=== PATIENT | female | born 1975 | race Caucasian/White ===

== ENCOUNTER 2025-03-22 07:53 | Outpatient (REF) | payer BC, SELFPAY | END 2025-03-22 07:54 | disposition home or self-care (01) | LOC: HO.LNP 07:53 | PROVIDERS: Visit Provider Internal Medicine | DX: Z00.00 Encounter for general adult medical examination without abnormal findings (principal); N92.0 Excessive and frequent menstruation with regular cycle; E04.9 Nontoxic goiter, unspecified; Z80.0 Family history of malignant neoplasm of digestive organs | CPT/HCPCS: 87626; 88175; 96127 ==

== ENCOUNTER 2025-03-22 07:53 | Outpatient (AMB) | payer BC, SELFPAY ==
--- NOTE | 2025-03-22 08:00 | A.OFFPC_ITS ---
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 Patient complains of hot flashes and irregular heavy menstrual bleeding for the last few months. She did not have insurance for 3 years and has not had regular medical care. 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 1. Little interest or pleasure in doing things: not at all 2. Feeling down, depressed, or hopeless: not at all 3. Trouble falling or staying asleep, or sleeping too much: not at all 4. Feeling tired or having little energy: nearly every day 5. Poor appetite or overeating: not at all 6. Feeling bad about yourself - or that you are a failure or have let yourself or your family down: not at all 7. Trouble concentrating on things, such as reading the newspaper or watching television: not at all 8. Moving or speaking so slowly that other people could have noticed. Or the opposite - being so fidgety or restless that you have been moving around a lot more than usual: not at all 9. Thoughts that you would be better off or of hurting yourself in some way: not at all Total score: 3 Depression Screening Interpretation: Negative Depression Screening Done: Yes 79876 - PHQ-9 Billing: Yes Source: Developed by Drs. Javier Castrejon, Paula Sullivan, Milton Cochran and colleagues, with an educational gerardo from [employer]. Thrive Questionnaire Date Thrive assessed: 03/22/25 I am a: Patient What is your living situation today?: I have a steady place to live Within the past 12 months, did the food you bought not last and you didn't have the money to get more?: Never true Within the past 12 months, did you worry whether your food would run out before you got money to buy more?: Never true Do you have trouble paying for medicines?: No Do you have trouble getting transportation to medical appointments?: No Do you have trouble paying your heating and electricity bill?: No Do you have trouble taking care of your child, family member or friend?: No Do you have trouble with day-to-day activities such as bathing, preparing meals, shopping, managing finances, etc.?: No Are you currently unemployed and looking for a job?: No Are you interested in more education?: No Please select the resources that you would like help with: None Currently or been in a relationship where the following occur: No concerns reported THRIVE Score: 0 AUDIT C Alcohol Use Questionnaire (AUDIT-C) 1. How often do you have a drink containing alcohol?: Monthly or less 2. How many drinks containing alcohol do you have on a typical day when you are drinking?: 1 or 2 3. How often do you have six or more drinks on one occasion?: Never Total Score: 1 ZAK-7 AMB Questionnaire ZAK-7 Date ZAK - 7 assessed: 03/22/25 Feeling nervous, anxious, or on edge: 0 = Not at all Not being able to stop or control worryin = Not at all Worrying too much about different things: 0 = Not at all Trouble relaxin = Not at all Being so restless that it is hard to sit still: 0 = Not at all Becoming easily annoyed or irritable: 0 = Not at all Feeling afraid as if something awful might happen: 0 = Not at all Total ZAK-7 score (0-4 normal; 5-9 mild; 10-14 moderate; 15-21 severe): 0 Source: Developed by Drs. Javier Castrejon, Paula Sullivan, Milton Cochran and colleagues, with an educational gerardo from [employer]. ZAK-7 Assessment Billing ZAK-7 Assessment Tool: ZAK-7 Assessment 95067 Review of Systems Const All systems reviewed & are unremarkable except as noted in HPI and below Eyes Reports no additional complaints ENT Reports no additional complaints Card Reports no additional complaints Resp Reports no additional complaints GI Reports no additional complaints Reports no additional complaints Physical exam (Primary Care) Vital Signs: Last Vital Signs Temp 98.4 F 03/22/25 08:03 Pulse 85 03/22/25 08:03 Resp 18 03/22/25 08:03 BP 110/78 03/22/25 08:03 Pulse Ox 100 03/22/25 08:03 Oxygen Delivery Method Room Air 03/22/25 08:03 BMI result Body Mass Index 22.7 Tobacco/Smoking Status: Tobacco use Status Tobacco use date assessed 03/22/25 03/22/25 08:11 Patient Tobacco Use Status Never used Tobacco 03/22/25 08:30 e-Cigarette/Vaping Use Never Used 03/22/25 08:30 PHQ-9: PHQ-9 Score PHQ-9: Total score 3 03/22/25 08:28 Depression Screening Interpretation: Negative Thrive Assessment: Date of Thrive Assessment Date Thrive assessed 03/22/25 03/22/25 08:13 Currently or been in a relationship where the following occur: No concerns reported Const General: no acute distress HENMT Head: Yes normal to inspection Face and sinus: Yes normal facial exam Mouth: Normal oral and palatal mucosa present Throat: Yes posterior oropharynx normal Eyes General: appearance normal, both eyes and all related structures Neck Neck: Yes no lymphadenopathy and Yes supple Thyroid: diffusely enlarged Resp Effort & Inspection: normal respiratory effort Auscultation: clear to auscultation bilaterally Cardio Rhythm: regular rhythm Heart sounds: S1 normal heart sound present and S2 normal heart sound present GI Inspection: Yes normal to inspection Palpation (GI): Soft to palpation Percussion: Yes normal to percussion Auscultation: normal bowel sounds External Female Exam: normal external appearance Speculum Exam - Vagina: normal appearance of the vagina Speculum Exam - Cervix: normal appearance of the cervix Bimanual exam- vagina & uterus: normal bimanual exam Coding Level of Care Code New Pt Prev Care 40-64y(64835) Diagnoses Annual physical exam Z00.00 FHx: colon cancer Z80.0 Menorrhagia N92.0 Enlarged thyroid E04.9 Additional Codes ZAK-7 Assessment Billing - ZAK-7 Assessment Tool: ZAK-7 Assessment 41000 ([id number]) PHQ-9 - 79100 - PHQ-9 Billing: Yes ([id number]) Assessment & Plan Assessment & Plan (1) Annual physical exam: Code(s): Z00.00 - Encounter for general adult medical examination without abnormal findings Category: Medical Plan: Well-balanced diet regular physical activity discussed with the patient she will return for fasting blood work. Mammogram will be scheduled due to family history of colon cancer patient will be referred for colonoscopy (2) FHx: colon cancer: Comment: both parents Code(s): Z80.0 - Family history of malignant neoplasm of digestive organs Category: Medical Plan: Referred for colonoscopy (3) Menorrhagia: Code(s): N92.0 - Excessive and frequent menstruation with regular cycle Category: Medical Plan: Pap smear was done today. Pelvic ultrasound will be obtained (4) Enlarged thyroid: Code(s): E04.9 - Nontoxic goiter, unspecified Category: Medical Plan: Thyroid ultrasound will be checked Orders: Orders Comprehensive [place]. Panel Fast Today Z00.00 - Encounter for general adult medical examination without abnormal findings TSH reflex Free T4 Today Z00.00 - Encounter for general adult medical examination without abnormal findings Vitamin D 25-OH Total Today Z00.00 - Encounter for general adult medical examination without abnormal findings Pap Smear Today Z00.00 - Encounter for general adult medical examination without abnormal findings US pelvic and transvaginal Today N92.0 - Excessive and frequent menstruation with regular cycle Complete Blood Count Auto Diff Today Z00.00 - Encounter for general adult medical examination without abnormal findings Lipid Panel Today Z00.00 - [facility] findings UA w Microscopic Today Z00.00 - Encounter for general adult medical examination without abnormal findings MM tomosynthesis screening BI Today Z12.31 - Encounter for screening mammogram for malignant neoplasm of breast US thyroid Today E04.9 - Nontoxic goiter, unspecified IRON PROFILE Today Z00.00 - Encounter for general adult medical examination without abnormal findings Referrals Gastroenterology Referral Z80.0 - Family history of malignant neoplasm of digestive organs
[2025-03-22 08:03] VITALS: BP 110/78; PULSE 85; RESP 18; TEMP 36.9; O2SAT 100; BMI 22.7
== END 2025-03-22 13:17 | disposition home or self-care (01) ==
LOC: HO.HMCC 07:54
PROVIDERS: Visit Provider Internal Medicine
DX: Z00.00 Encounter for general adult medical examination without abnormal findings (principal); Z80.0 Family history of malignant neoplasm of digestive organs; N92.0 Excessive and frequent menstruation with regular cycle; E04.9 Nontoxic goiter, unspecified

== ENCOUNTER 2025-03-22 09:13 | Outpatient (REF) | payer BC, SELFPAY ==
[2025-03-22 10:09] LABS: MANUAL DIFF FLAG NO
[2025-03-22 10:20] LABS: Hematocrit 37.1 % (37.0-47.0); Hemoglobin 12.4 g/dl (12.0-16.0); Imm Gran Abs Auto 0.02 X10*3/uL (0.00-0.03); Imm Gran Pct Auto 0.4 % (0.0-0.4); Lymphocytes Absolute Auto 1.2 X10*3/uL (1.2-4.9); Mean Corpuscular HGB Conc 33.4 g/dl (31.0-35.0); Mean Corpuscular Hemoglobin 28.9 pg (27.0-33.0); Mean Corpuscular Volume 86.5 fL (80.0-98.0); NRBC Abs Auto 0.000 X10*3/uL (0.0-0.012); NRBC Pct Auto 0.0 /100WBC (0.0-0.2); Platelet Count 363 X10*3/uL (160-400); Red Blood Count 4.29 X10*6/uL (4.20-5.50); White Blood Count 5.5 X10*3/uL (4.8-10.8)
[2025-03-22 11:09] LABS: Alanine Aminotransferase 19 U/L (0-31); Albumin Level 4.5 g/dL (3.5-5.0); Alkaline Phosphatase 73 U/L (39-117); Anion Gap 11 (12-20); Aspartate Amino Transferase 23 U/L (5-31); Blood Urea Nitrogen 9 mg/dL (9-16); Calcium 9.0 mg/dL (8.4-10.2); Carbon Dioxide 27 mmol/L (22-29); Chloride 106 mmol/L (96-108); Cholesterol 202 mg/dL (<200); Estimated Glomerular Filt Rate > 60; HDL Cholesterol 62 mg/dL (>40); Iron 92 mcg/dL (30-160); Percent Iron Saturation 27 % (15-50); Potassium 3.6 mmol/L (3.3-5.1); Sodium 140 mmol/L (135-145); Total Iron Binding Capacity 337 mcg/dL (228-428); Total Protein 7.5 g/dL (6.5-8.0); Triglycerides 56 mg/dL (<150); Unsaturated Iron Binding 245 ug/dL
[2025-03-22 13:15] LABS: Appearance Urine Clear; Glucose Urine UA Negative (Negative); PH 8.5 (5.0-9.0); Specific Gravity - Urine 1.020 (1.005-1.025); UMIC TRIGGER UA YES
== END 2025-03-22 09:14 | disposition home or self-care (01) ==
LOC: HO.HMGCLDS 09:13
PROVIDERS: PCP Internal Medicine; Visit Provider Internal Medicine
DX: Z00.00 Encounter for general adult medical examination without abnormal findings (principal); Z13.6 Encounter for screening for cardiovascular disorders; Z13.0 Encounter for screening for diseases of the blood and blood-forming organs and certain disorders involving the immune mechanism
CPT/HCPCS: 36415; 80053; 80061; 81001; 82306; 83540; 84443; 85025

== ENCOUNTER 2025-05-24 13:00 | Outpatient (REF) | payer BC, SELFPAY ==
--- NOTE | ~2025-05-24 | US_ITS ---
EXAMINATION: US PELVIS CLINICAL INFORMATION: Menorrhagia COMPARISON: None available. TECHNIQUE: Ultrasound of the pelvis is performed using both transabdominal and transvaginal transducers along with Doppler. Transvaginal imaging is performed due to inadequate visualization transabdominally. FINDINGS: Uterus: The uterus is anteversion flexion and measures 8 x 4 x 6 cm. Volume: 103 cc. Cervix is closed with a small nabothian cysts. The double wall endometrial thickness is 5 mm. There is a 1.5 cm isoechoic lesion in the fundus of the uterus. There is a 1.1 cm hypoechoic soft tissue lesion in the left body of the myometrium. . Adnexa: The ovaries are identified with flow on color Doppler interrogation.. No gross solid or cystic lesion. No free fluid in the cul-de-sac. Right ovary measures 3 x 2 x 1 cm. Volume: 2 cc. 1 cm dominant follicle Left ovary measures . 2 x 1 x 2 cm. Volume: 2 cc. US/US pelvic and transvaginal IMPRESSION: Uterine fibroids. No ovarian torsion. Electronically signed by: Bartolo Steen MD 05/24/2025 01:46 PM EST
--- NOTE | ~2025-05-24 | US_ITS ---
EXAMINATION: US THYROID CLINICAL INFORMATION: Nontoxic goiter. Enlarged thyroid gland. 49-year-old female. COMPARISON: No priors. TECHNIQUE: Linear transducer grayscale and color Doppler examination with attention to the region of the thyroid. FINDINGS: SIZE: Measurements of the thyroid lobes and nodules are given in sagittal, anteroposterior and transverse dimensions respectively. Right Thyroid Lobe: 4.7 x 1.1 x 1.5 cm, volume 4.0 mL. Parenchyma: The gland echotexture is mildly heterogeneous. Thyroid vascularity is increased. Left Thyroid Lobe: 4.7 x 1.1 x 1.8 cm, volume 5.1 mL. Parenchyma: The gland echotexture is mildly heterogeneous. Thyroid vascularity is increased. Isthmus: 0.4 cm in maximum AP dimension. There are no thyroid nodules. NODES: No lymphadenopathy is seen in the tissue surrounding the thyroid gland. US/US thyroid IMPRESSION: 1. Mildly enlarged, mildly heterogeneous thyroid parenchyma with mild hypervascularity, findings in keeping with mild thyroiditis. 2. There are no discrete nodules identified. Electronically signed by: Rakesh Drew MD 05/24/2025 01:51 PM EST
== END 2025-05-24 13:01 | disposition home or self-care (01) ==
LOC: HO.HMGCX 13:00
PROVIDERS: PCP Internal Medicine; Visit Provider Internal Medicine
DX: N92.0 Excessive and frequent menstruation with regular cycle (principal); E04.9 Nontoxic goiter, unspecified
CPT/HCPCS: 76536; 76830; 76856

== ENCOUNTER → 2025-05-24 13:04 | Outpatient (BNV) | payer BC, SELFPAY | PROVIDERS: PCP Internal Medicine; Visit Provider Radiology Diagnostic Radiology | DX: N92.0 Excessive and frequent menstruation with regular cycle (principal); N83.01 Follicular cyst of right ovary; E06.5 Other chronic thyroiditis | CPT/HCPCS: 76536; 76830; 76856 ==